=== PATIENT | female | born 1995 | race African-American/Black ===

== ENCOUNTER 2023-06-12 01:31 | Emergency (ER) | payer SELFPAY ==
[2023-06-12] MEDS ORDERED: Acetaminophen 500 MG TAB ONE (01:46)
[2023-06-12 02:36] LABS: Influenza A by NAA DETECTED (NotDetected); Influenza B by NAA Not Detected (NotDetected); SARS-CoV-2 NAA Rapid Test Not Detected (NotDetected)
== END 2023-06-12 03:15 | disposition home or self-care (01) ==
LOC: CSHERS 01:31
DX: J10.1 Influenza due to other identified influenza virus with other respiratory manifestations (principal); F17.290 Nicotine dependence, other tobacco product, uncomplicated
CPT/HCPCS: 99283